=== PATIENT | male | born 1945 ===

== ENCOUNTER 2020-04-28 15:33 | Inpatient (IN) | payer OTHER ==
[~2020-04-28] VITALS: Ht 157.5 cm; Wt 59.0 kg
[2020-04-28] MEDS ORDERED: PAXIL40 MG (16:08)
[2020-04-28] MEDS ORDERED: TRANXENE T-TAB7.5 MG (16:09)
[2020-04-28] MEDS ORDERED: CARDURA XL4 MG (16:09)
[2020-04-28] MEDS ORDERED: ARICEPT10 MG (16:09)
== END 2020-05-12 22:44 | disposition expired | DRG 208 ==
LOC: ER 15:33 → SEC-K 20:48 → MEDJ 20:48
PROVIDERS: ADMIT Internal Medicine; ATTEND Internal Medicine
PROC: BB24ZZZ Computerized Tomography (CT Scan) of Bilateral Lungs (ICD-10-PCS; 2020-04-28)
PROC: 0T9B70Z Drainage of Bladder with Drainage Device, Via Natural or Artificial Opening (ICD-10-PCS; 2020-04-28)
PROC: 5A1945Z Respiratory Ventilation, 24-96 Consecutive Hours (ICD-10-PCS; principal; 2020-04-29)
PROC: 0BH17EZ Insertion of Endotracheal Airway into Trachea, Via Natural or Artificial Opening (ICD-10-PCS; 2020-04-29)
PROC: B24BZZZ Ultrasonography of Heart with Aorta (ICD-10-PCS; 2020-04-29)
PROC: 4A12X4Z Monitoring of Cardiac Electrical Activity, External Approach (ICD-10-PCS; 2020-04-29)
PROC: 4A033R1 Measurement of Arterial Saturation, Peripheral, Percutaneous Approach (ICD-10-PCS; 2020-04-29)
PROC: 8E0ZXY6 Isolation (ICD-10-PCS; 2020-04-29)
PROC: 0W9B30Z Drainage of Left Pleural Cavity with Drainage Device, Percutaneous Approach (ICD-10-PCS; 2020-05-02)
PROC: 0DH67UZ Insertion of Feeding Device into Stomach, Via Natural or Artificial Opening (ICD-10-PCS; 2020-05-03)
PROC: 3E0G76Z Introduction of Nutritional Substance into Upper GI, Via Natural or Artificial Opening (ICD-10-PCS; 2020-05-03)
PROC: 05HY33Z Insertion of Infusion Device into Upper Vein, Percutaneous Approach (ICD-10-PCS; 2020-05-04)
PROC: 30243N1 Transfusion of Nonautologous Red Blood Cells into Central Vein, Percutaneous Approach (ICD-10-PCS; 2020-05-08)
DX: J15.29 Pneumonia due to other staphylococcus (principal); A41.1 Sepsis due to other specified staphylococcus; B37.7 Candidal sepsis; J96.01 Acute respiratory failure with hypoxia; J90 Pleural effusion, not elsewhere classified; N39.0 Urinary tract infection, site not specified; I46.9 Cardiac arrest, cause unspecified; I08.1 Rheumatic disorders of both mitral and tricuspid valves; I48.0 Paroxysmal atrial fibrillation; G30.0 Alzheimer's disease with early onset; D64.9 Anemia, unspecified; E86.0 Dehydration; E87.8 Other disorders of electrolyte and fluid balance, not elsewhere classified; E11.65 Type 2 diabetes mellitus with hyperglycemia; F02.80 Dementia in other diseases classified elsewhere, unspecified severity, without behavioral disturbance, psychotic disturbance, mood disturbance, and anxiety; Z79.4 Long term (current) use of insulin; Z74.01 Bed confinement status; Z79.01 Long term (current) use of anticoagulants; Z03.818 Encounter for observation for suspected exposure to other biological agents ruled out